=== PATIENT | male | born 1990 | race Caucasian/White ===

== ENCOUNTER → 2021-05-04 11:41 | Outpatient (CLI) | payer OTHER, SELFPAY ==
[2021-05-04 12:47] LABS: COVID19 -Nasal RAPID Negative (Negative)
== END ==
PROVIDERS: Visit Provider Physician Assistant
DX: Z01.812 Encounter for preprocedural laboratory examination (principal); Z20.822 Contact with and (suspected) exposure to COVID-19
CPT/HCPCS: 87635

== ENCOUNTER → 2021-05-06 13:24 | Outpatient (CLI) | payer OTHER, SELFPAY ==
--- NOTE | 2021-05-06 | DI.ECHO.S_ITS ---
[facility] +---------+ : : [address] : [place] : : : : [id number] : : : : Phone: [phone]---------+ Echocardiogram Report + + :Name: CASSANDRA MARTÍNEZ Study Date: 05/06/2021 Height: 68 in : :[facility] : Weight: 160 lb : : Gender: Male BSA: 1.9 m2 : :: 1990 Age: 30 yrs BP: 161/98 mmHg: :Reason For Study: Palpitations : :Ordering Physician: Simon : :Leandro Jin Performed By: Ash Elliott : :Referring: SIMON JIN : + + Interpretation Summary The left ventricle is normal in size and wall thickness. The ejection fraction is estimated to be 60-65%. The right ventricle is normal in size and function. No significant valvular pathology seen. The IVC is of normal diameter and collapses greater than 50% with a sniff. This suggests a low right atrial pressure of 3 mm Hg. Procedure: A two-dimensional transthoracic echocardiogram with color flow and Doppler was performed. The study quality was technically adequate. There is no prior echocardiogram noted for this patient. The patient was in sinus rhythm with heart rates between 68-100 bpm during the exam. Left Ventricle: The left ventricle is normal in size and wall thickness. There is no thrombus. Left ventricular systolic function is normal. The ejection fraction is estimated to be 60-65%. There are no focal wall motion abnormalities. Diastolic parameters suggest probable normal left ventricular diastolic function and normal filling pressures. Right Ventricle: The right ventricle is normal in size and function. Atria: Both atria are normal in size. There is no Doppler evidence for an interatrial shunt. Mitral Valve: The mitral valve is normal in structure and function. There is systolic anterior motion of the chordal apparatus. There is trace mitral regurgitation. Aortic Valve: The aortic valve is normal in structure and function. The aortic valve is trileaflet. There is no aortic valve stenosis. No aortic regurgitation is present. Tricuspid Valve: The tricuspid valve is normal in structure and function. Pulmonary artery pressures cannot be estimated because of the lack of a measurable TR jet velocity but the IVC suggests a CVP of around 3 mmHg. There is trace tricuspid regurgitation. Pulmonic Valve: The pulmonic valve is normal in structure and function. There is a trace or physiologic amount of pulmonic regurgitation. Great Vessels: The aortic root is normal size. The dimensions of the ascending aorta are normal. The IVC is of normal diameter and collapses greater than 50% with a sniff. This suggests a low right atrial pressure of 3 mm Hg. Pericardium/ Pleura There is no pericardial effusion. There is no pleural effusion. MMode/2D Measurements & Calculations LVIDd: 4.8 cm LVOT diam: 2.3 cm LVIDs: 3.1 cm Ao root diam: 3.1 cm FS: 36.0 % asc Aorta Diam: 2.9 cm IVSd: 0.80 cm LVPWd: 0.84 cm LV quach. diameter/BSA (cm/m^2): 2.6 LV sys. diameter/BSA (cm/m^2): 1.6 LA A2 area: 16.3 cm2 RA area: 12.6 cm2 LA A4 area: 18.0 cm2 IVC diam: 2.1 cm LA length (vol): 4.4 cm LA vol: 56.0 ml LA vol index: 30.1 ml/m2 RVD1 (basal): 3.2 cm TAPSE: 2.4 cm Doppler Measurements & Calculations Ao V2 max: 139.8 cm/sec LVOT Max Huan: 158.7 cm/sec Ao V2 mean: 98.2 cm/sec LV V1 max P.1 mmHg Ao max P.8 mmHg LV V1 VTI: 25.7 cm Ao mean P.3 mmHg DENNISE(I,D): 4.1 cm2 Ao V2 VTI: 25.4 cm DENNISE(V,D): 4.6 cm2 sev ratio: 1.0 DENNISE indexed to BSA (cm^2/m^2): 2.2 MV E max huan: 105.3 cm/sec PA V2 max: 112.8 cm/sec MV A max huan: 71.3 cm/sec PA V2 mean: 79.9 cm/sec MV E/A: 1.5 PA mean P.9 mmHg Med Peak E' Huan: 13.4 cm/sec PA pr(Accel): 38.5 mmHg E/E' med: 7.9 Lat Peak E' Huan: 14.4 cm/sec E/E' lat: 7.3 E/e' average: 7.6 MV dec time: 0.17 sec SV(LVOT): 103.9 ml Reading Physician:06:32 PM
--- NOTE | 2021-05-06 20:13 | DI.NM.S_ITS ---
DATE OF SERVICE: 05/06/2021 PROCEDURE PERFORMED: Exercise treadmill stress test without imaging. INDICATIONS: The patient is a 30-year-old male with hypertension, palpitations, and epigastric discomfort. FINDINGS: 1. The patient was able to exercise for 14 minutes 40 seconds on a standard Pb protocol suggesting average exercise capacity with an KRISTINE of -33%, achieving 14.8 METs. 2. He had a normal heart rate and blood pressure response to exercise, achieving a maximum heart rate of 182 BPM (96% of his predicted maximum). 3. He had no chest discomfort or other anginal symptoms. 4. His resting ECG shows sinus rhythm with normal ST segments. With exercise, there are no significant ST-segment shifts or arrhythmias identified. IMPRESSION: 1. Normal exercise treadmill test for ischemia. 2. Average exercise capacity without angina or arrhythmias. Andrea Juarez - BRIDGET/martha/lc doc#: [id number]/job#: [id number] dd: 05/06/2021 17:07:00 dt: 05/06/2021 18:24:00 DICTATING MD/COPIES TO: Domingo Arredondo MD; Deng Mariscal MD COPIES MNE: DAWNA;
== END ==
PROVIDERS: PCP Family Medicine; Referring Provider Internal Medicine Cardiovascular Disease; Visit Provider Internal Medicine Cardiovascular Disease
DX: R00.2 Palpitations (principal); I10 Essential (primary) hypertension; R10.13 Epigastric pain
CPT/HCPCS: 93017; 93306